=== PATIENT | male | born 2000 | race Caucasian/White ===

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

== ENCOUNTER 2019-02-27 12:06 | Emergency (ER) | payer MEDICAID, SELFPAY ==
[2019-02-27 12:07] VITALS: BP 153/85; PULSE 89; RESP 15; TEMP 36.9; O2SAT 99; BMI 21.9
--- NOTE | 2019-02-27 12:30 | EKG12_ITS ---
Test Reason : CP Blood Pressure : / mmHG Vent. Rate : 108 BPM Atrial Rate : 108 BPM P-R Int : 140 ms QRS Dur : 084 ms QT Int : 316 ms P-R-T Axes : 082 101 065 degrees QTc Int : 423 ms Sinus tachycardia Right atrial enlargement Rightward axis Pulmonary disease pattern Abnormal ECG Confirmed by TANNA THOMPSON, ALEJANDRO ([id number]), editor at large PRACHI CORTES ([id number]) on 03/04/2019 11:45:24 AM Referred By: CRIS/FRANCISCO Confirmed By:HARLEY CISSE MD
--- NOTE | 2019-02-27 12:30 | ED.DCSUM_ITS ---
History of Present Illness Chief Complaint: Chest Pain Informant: Patient, Parent Onset: Weeks - 2 Activity at onset: Unknown Timing: Intermittent, Lasts - 5-10 min usually Quality: - - feels funny Current Severity: Gone - last episode JPTA Maximum Severity: Moderate Worsened By: Nothing Relieved By: Nothing - goes away on its own Associated Symptoms: Palpitations - feels like heart beating fast, hard. Negative for: Nausea, Vomiting, Diaphoresis, Dyspnea, Cough, Fever, Lightheadedness Narrative: Patient has been having the symptoms for about 2 weeks, almost daily, he gets panicky and very anxious about it, so wanted to come to the emergency department today to have this evaluated. States he smokes marijuana frequently, but stopped 3 days ago. The pain seemed to switch sides of his chest. He was having some funny feeling discomfort in his chest during the evaluation and the EKG, but it quickly dissipated. He took deep breaths and eventually it went away. He states lying down sometimes makes it better. He has taken Advil and thought it helped, but states that the pain goes away within 5 or 10 minutes of swallowing the pills. He does not think smoking marijuana has been triggering the discomfort. He thinks that the symptoms may have ramped up a little since he stopped smoking marijuana 3 days ago. He is extremely anxious and scared that something is wrong with his heart. - Past Medical History (1) Anxiety Status: Chronic Past Medical History - Allergies and Home Meds Allergies/Adverse Reactions: Allergies No Known Allergies Allergy (Verified 02/27/19 12:10) Primary Care Physician: Geoffrey Tatum MD [STAFF PHYSICIAN] - Lives: With Family Smoking Status: Never smoker Drugs: Marijuana Review of Systems General: Denies: Chills, Fever, Sweats Eyes: Denies: Visual changes - bilaterally, Diplopia ENT: Denies: Rhinorrhea, Sore throat Cardiovascular: Reports: Chest pain, Palpitations, Heart racing Respiratory: Denies: Dyspnea, Cough, Dyspnea on exertion Gastrointestinal: Denies: Abdominal pain, Nausea, Vomiting, Diarrhea, Melena, Hematochezia Genitourinary: Denies: Dysuria, Hematuria, Frequency Musculoskeletal: Denies: Back pain, Extremity Pain Skin: Denies: Rash, Wounds Neurological: Reports: Parasthesia - Both hands at this time as the patient is very anxious. Denies: Headache, Weakness Psych: Reports: Anxiety. Denies: Suicidal thoughts Physical Exam Vital Signs/Narrative: Vital Signs Temp Pulse Resp BP Pulse Ox 02/27/19 12:07 98.4 F 89 15 153/85 H 99 Inital Vital Signs reviewed: Yes General: Well nourished, Well developed, No Acute Distress Head: Normocephalic, Atraumatic Eyes: Perrl, EOMI ENT: Moist mucous membranes, No rhinorrhea Neck: Supple, Nontender, No JVD Cardiovascular: Regular rate, Regular rhythm, No murmurs, Normal S1, Normal S2. Negative for: Tachycardia Respiratory: No distress, CTA bilaterally, Chest nontender Abdomen: Soft, Nontender, Nondistended, Normal bowel sounds Back: Nontender, Normal Inspection Extremities: Nontender, No edema. Negative for: Calf Tenderness Skin: Normal color, No rash Neurological: Alert, Oriented x3, Cranial nerves II-XII grossly intact, Normal Strength, Normal Sensation, Normal Gait Psychological: Normal Mood, - - very anxious, shaky Diagnostic/Tx/Re-eval Impressions Chest X-Ray 02/27/19 12:47 IMPRESSION: Normal x-ray examination of the chest. Electronically Signed: Regino Alisia, at 13:02 EST , Service support , 02/27/19 12:47 Chest PA and Lateral [RAD] Stat Laboratory Results 02/27/19 02/27/19 12:35 12:35 WBC 6.5 RBC 6.05 Hgb 17.7 H Hct 49.8 MCV 82.3 MCH 29.3 MCHC 35.5 RDW Std Deviation 38.1 RDW Coeff of Esteban 12.7 Plt Count 325 MPV 9.8 Immature Gran % (Auto) 0.200 Neut % (Auto) 62.5 Lymph % (Auto) 27.9 [place] % (Auto) 6.5 Eos % (Auto) 2.3 Baso % (Auto) 0.6 Absolute Neuts (auto) 4.1 Absolute Lymphs (auto) 1.81 Nucleated RBC % 0 Sodium 139 Potassium 3.5 Chloride 105 Carbon Dioxide 23.0 Anion Gap 11 BUN 18 Creatinine 0.94 Estim Creat Clear Calc 103.52 Est GFR (MDRD) Af Amer 133 Est GFR (MDRD) Non-Af 110 BUN/Creatinine Ratio 19.2 Glucose 120 H Calcium 10.2 H Troponin I < 0.015 - Rhythm Strip Rhythm Strip: Sinus Tach Rate: 102 Ectopy: None - EKG Initial EKG Interpretation: No Acute Injury Pattern, Sinus Tachycardia, - - Artifact present due to patient very tremulous and anxious. Appears to be normal nonischemic EKG. Patient has very asthenic build, which probably explains the rightward axis. Prior: No Prior Treatment: - - ativan - Medical Decision Making Patient was given Ativan after I discussed risks and benefits, and offered him something for anxiety. He wanted something for it and was thankful for the offer. He felt much better afterwards and all of his symptoms resolved. His work-up was unremarkable. I do not think this is a pulmonary embolus, I do not think he needs further emergent work-up for the symptoms. He needs to see PCP. Mom is in agreement and was trying to do that today when they called and they were diverted to the emergency department. I do not think he needs to be placed on long-term anxiety medicine by myself, however he may require it but he should be evaluated by primary care first. They agree with all of this and are comfortable with this overall plan, they were given referral options. ED Disposition - Plan for ED Patient: Disposition: Home or Assisted Living Diagnosis: Anxiety, Chest pain, unspecified Instructions: CHEST PAIN, NonCardiac, Anxiety Reaction Referrals: Fast,Margoth, DO [NON-STAFF] - (call for appt)
[2019-02-27 12:46] LABS: Absolute Lymphocyte Count 1.81 X10^3/uL (0.83-4.51); Absolute Neutrophil Count 4.1 X10^3/uL (2.0-7.7); Basophil# 0.04 X10^3/uL; Basophil% 0.6 % (0-1); Eosinophil# 0.15 X10^3/uL; Eosinophils% 2.3 % (0-5); Hematocrit 49.8 % (40-54); Hemoglobin 17.7 g/dL (13.0-16.5); Lymphocyte # 1.81 X10^3/ul (4.0); Lymphocyte % 27.9 % (19-41); Mean Corp Hgb Conc 35.5 g/dL (32-36); Mean Corpuscular Hgb 29.3 pg (27.0-32.0); Mean Corpuscular Volume 82.3 fL (80-94); Mean Platelet Vol. 9.8 fl (6.2-12.0); Monocyte# 0.42 X10^3/uL; Monocyte% 6.5 % (0-10); NRBC Flagged by Analyzer 0 % (0-5); Neutrophil # 4.06 X10^3/uL (2.7-7.7); Neutrophil % 62.5 % (47-70); Platelet Count 325 K/mm3 (150-450); RBC Distribution Width CV 12.7 % (11.6-14.6); RBC Distribution Width SD 38.1 fl (35.1-43.9); Red Blood Count 6.05 M/mm3 (4.6-6.2); White Blood Count 6.5 K/mm3 (4.4-11.0)
--- NOTE | 2019-02-27 12:47 | RAD_ITS ---
STUDY: X-RAY CHEST REASON FOR EXAM: Male, 18 years old. Anxiety. TECHNIQUE: PA and lateral views of the chest. COMPARISON: None. FINDINGS: EKG electrodes are seen. The lungs are clear and expanded. Scattered calcified granulomas There is no demonstrated pleural abnormality. Normal size heart. Normal mediastinum and yolanda. Normal visualized pulmonary arteries. Normal visualized aortic arch and descending thoracic aorta. Normal visualized thoracic spine. Normal visualized ribs, clavicles, and shoulders. There is no demonstrated abnormality of the visualized soft tissue structures of the upper abdomen. RAD/Chest PA and Lateral IMPRESSION: Normal x-ray examination of the chest. Electronically Signed: Regino Crump, at 13:02 EST , Service support ,
[2019-02-27] MEDS: LORazepam 2 MG/ML Syringe 0.5 MG IV (12:48)
[2019-02-27 12:49] VITALS: BP 131/69; PULSE 118; RESP 22; O2SAT 100
[2019-02-27 13:24] LABS: Anion Gap 11 (5-15); BUN 18 mg/dL (7-18); BUN/Creat Ratio 19.2 RATIO (10-20); Calcium,Total 10.2 mg/dL (8.5-10.1); Chloride 105 mmol/L (98-107); Creatinine, Serum 0.94 mg/dL (0.70-1.30); EST Glomerular Filtration Rate 110 mL/min (>60); Est Glom Filt Rate - Afr Amer 133 mL/min (>60); Estimated Creatinine Clearance 103.52 ml/min; Glucose 120 mg/dL (74-106); Potassium 3.5 mmol/L (3.5-5.1); Sodium Level 139 mmol/L (136-145)
[2019-02-27 13:55] VITALS: BP 109/65; PULSE 86; RESP 11; O2SAT 98
[2019-02-27 15:06] VITALS: BP 109/67; PULSE 78; RESP 16; O2SAT 99
== END 2019-02-27 15:12 | disposition home or self-care (01) ==
PROVIDERS: Emergency Provider Emergency Medicine
DX: F41.9 Anxiety disorder, unspecified (principal); R07.89 Other chest pain
CPT/HCPCS: 71046; 80048; 84484; 85025; 93005; 96374; 99284; A4216

== ENCOUNTER 2019-10-29 16:02 | Emergency (ER) | payer MEDICAID, SELFPAY ==
[2019-10-29 16:03] VITALS: BP 117/85; PULSE 105; RESP 16; TEMP 36.1; O2SAT 98; BMI 21.6
--- NOTE | 2019-10-29 16:12 | ED.DCSUM_ITS ---
- ER Visit Summary Date of Service: 10/29/19 Chief Complaint: Right eye pain History of Present Illness: The patient is a 19 M with no primary care physician. He reports that few hours ago he was walking to [facility] and felt something going to his right eye. States that he rubbed it. Now complains of a sharp pain that is been constant since that time. Is 5-10 at worst and 4-10 currently. Is worsened by rubbing it. Is relieved by nothing. He denies any change in his vision. He does not wear glasses or contacts. Physical Examination: Vitals: Stable. Afebrile. General: Well-nourished and well-developed. Head: Normocephalic atraumatic. Right eye: The upper eyelid was everted for exam. There is no foreign body present under this. He has diffuse conjunctival injection. There is a corneal abrasion with fluorescein dye uptake in the superolateral quadrant of his eye. This does not cross the visual axis. Neck: Supple, no lymphadenopathy. No JVD. Nontender. Cardiovascular: Regular rate and rhythm. No murmurs. Respiratory: No respiratory distress. Clear to auscultation bilaterally. Abdominal: Soft, nontender, nondistended, normal bowel sounds. No guarding, rebound, or peritoneal signs. Back: Nontender. Extremities: Nontender, no edema. Skin: Normal color, no rash. Neurologic: Alert and oriented ?3. Cranial nerves II through XII are intact. Normal strength and sensation. Psych: Normal affect. Test Results: Visual acuity was 20/40 OD, 20/40 OS, 20/40 OU. Emergency Department Course and Treatment: Patient had complete relief from tetracaine. He had bacitracin ophthalmic placed in his eye. Treatment Plan: Patient be discharged bacitracin ophthalmic. Instructed to follow-up Dr. Floyd in 2 days for a repeat exam. Return to the emergency department for any worsening symptoms. Disposition: To home in improved and stable condition. Impression: 1. Corneal abrasion on right. This note was generated with [employer] dictation software. It may contain incorrect words, spelling, and punctuation that were not noted in review of the chart prior to signing ED Disposition - Plan for ED Patient: Disposition: Home or Assisted Living Instructions: ED Corneal Abrasion Referrals: Donal Floyd MD [STAFF PHYSICIAN] - 2 Days
[2019-10-29] MEDS: Tetracaine 0.5% Ophthalmic Bottle OPHTHALMIC (16:34)
[2019-10-29] MEDS: Fluorescein 1 MG STRIP 1 STRIP OPHTHALMIC (16:34)
== END 2019-10-29 17:30 | disposition home or self-care (01) ==
PROVIDERS: Emergency Provider Emergency Medicine
DX: S05.01XA Injury of conjunctiva and corneal abrasion without foreign body, right eye, initial encounter (principal); Y93.01 Activity, walking, marching and hiking
CPT/HCPCS: 99283